=== PATIENT | male | born 1950 | race Caucasian/White ===

== ENCOUNTER 2016-12-10 07:23 | Day surgery (SDC) | payer MEDICARE ==
[~2016-12-10] VITALS: Ht 170.2 cm; Wt 77.1 kg
[~2016-12-10 07:23] MED LIST: AMLO2.5T PO; ASPI-973 PO; CIPR-198 PO; DOXY100C43 PO; KEN25CR EXT; LEVO125T6 PO; NIAC500T21 PO; TADA5TAB2 PO
[2016-12-10] MEDS ORDERED: 0.9% Sodium Chloride 1,000 ML IV PRN (07:41)
[2016-12-10] MEDS ORDERED: fentaNYL-PF 50 mCg/mL 2 mL Inj IVPUSH PRN (07:45)
[2016-12-10] MEDS ORDERED: Sodium Chloride LOK Flush 10 mL Syringe IV PRN (07:45)
[2016-12-10 07:48] VITALS: BP 146/92; PULSE 53; RESP 14; O2SAT 98
[2016-12-10 08:27] VITALS: BP 142/86; PULSE 53; RESP 16; O2SAT 97
--- NOTE | 2016-12-10 08:29 | PCM.ENDCOL ---
Colonoscopy Date of Service: Dec 10, 2016 Physician Dionisio Smallwood MD Pre Procedure Diagnosis: Screening personal history of colon polyp Post Procedure Dx & Findings: Polyp hemorrhoids diverticuli Procedure Colonoscopy Prep adequate Withdrawal time 13 minutes After unremarkable rectal examination the Olympus video colonoscope was inserted patient's anal canal and was advanced to cecum. Landmarks were identified including the ileocecal valve and appendiceal orifice. Scope was withdrawn systematically. Visualized colonic mucosa showed healthy shiny mucosa with normal healthy-appearing vasculature. In the transverse colon, there was a 3 mm polyp which was removed completely using cold snare. Also throughout the colon from the sigmoid colon and into the ascending colon, there are a few isolated small diverticuli. In the rectum retroflexion was done which showed hemorrhoids. Anal canal was inspected carefully on the way out and hemorrhoids noted. Impression Polyp 1 status post complete removal Diverticula Personal history of colon polyp Hemorrhoids Recommendation Repeat colonoscopy 5 years Diverticular diet Presedation Assessment Risks and Benefits Informed consent was obtained from the patient after all risks and benefits including but not limited to drug reaction, infection, pain, bleeding, perforation, as well as alternatives were discussed. Patient monitoring Continuous pulse oximetry, cardiac monitoring, blood pressure monitoring, IV access, and oxygen at 2L per nasal cannula. Periprocedural Fentanyl: Fentanyl 75mcg Incrementally Midazolam: Midazolam 4mg Incrementally Complications There were no periprocedural complications identified. Post Procedure Plan Post Procedure Recommendations 1. Restrict activities today. 2. Resume normal activities in the morning. 3. Resume medications. 4. Patient informed of normal post procedure side effects as bloating, drowsiness, blood streaking in the stool. 5. average risk CRCS. If colon polyps come back as: -Hyperplastic- can repeat colonoscopy in 10 years -Tubular adenoma- repeat colonoscopy in 5 years -Tubulovillous/villous adenoma- repeat colonoscopy in 3 years -If any dysplasia- return to clinic as soon as possible 6. Please don't hesitate to call me with any questions. Dionisio Smallwood MD Dec 10, 2016 08:29
[2016-12-10 08:37] VITALS: BP 144/86; PULSE 54; O2SAT 99
[2016-12-10 08:50] VITALS: BP 146/84; PULSE 52; O2SAT 100
--- NOTE | 2016-12-11 12:51 | PATH ---
SURGICAL PATHOLOGY Attending Physician:Dionisio Smallwood M.D. CASE STATUS: Signed Out PATIENT NAME: CATHLEEN LI PID: [id number] : 1950 DATE COLLECTED:12/10/2016 16:59 SPECIMEN: Colon, Biopsy CLINICAL HISTORY: 1). TRANSVERSE COLON POLYP FINAL DIAGNOSIS: 1.TRANSVERSE COLON POLYP: TUBULAR ADENOMA. ICD10 CODE D12.6 GROSS DESCRIPTION: The specimen is received in one formalin filled container labeled with the patient's name, sublabeled "transverse colon polyp" and consists of a 0.5 x 0.4 x 0.4 CM portion of tissue which is entirely submitted in one cassette. 12/10/2016 DAC MICRO DESCRIPTION: See diagnosis. ICD-9 CODES: CPT CODES: 1: 50513 Electronically Signed Out Christophe Clayton MD [facility] [address], [place] [address] Technical component performed at [facility], [address] [place] [address] Ave[address], [place], [address]
== END 2016-12-10 23:59 | disposition home or self-care (01) ==
LOC: END 07:23
PROVIDERS: ATTEND Internal Medicine
DX: Z12.11 Encounter for screening for malignant neoplasm of colon (principal); D12.3 Benign neoplasm of transverse colon; K57.30 Diverticulosis of large intestine without perforation or abscess without bleeding; K64.8 Other hemorrhoids; Z86.010 Personal history of colon polyps; I10 Essential (primary) hypertension; E03.9 Hypothyroidism, unspecified; N48.6 Induration penis plastica; Z79.82 Long term (current) use of aspirin
CPT/HCPCS: 45385; 88305; 99153; G0500; J2250; J3010; J7030